=== PATIENT | male | born 1945 | race Caucasian/White ===

== ENCOUNTER 2019-08-07 16:19 | Emergency (ER) | payer MEDICARE, OTHER ==
[~2019-08-07 16:19] MED LIST: Iopamidol-370 76% 500 ML 1 ML ONE
[2019-08-07 16:45] LABS: #Basophils 0.1 thou/uL (0.0-0.2); #Eosinphils 0.2 thou/uL (0.0-0.7); #Lymphocytes 0.9 thou/uL (1.20-3.40); #Monocytes 0.8 thou/uL (0.11-0.59); %Basophils 0.4 % (0.0-1.0); %Eosinophils 1.3 % (0.0-10.0); %Lymphocytes 7.6 % (21.0-51.0); %Neutrophils 83.7 % (42.0-75.0); Hemoglobin 11.8 g/dL (14.0-18.0); Mean Corpuscular HGB CONC 33.3 g/dL (32.0-36.0); Mean Corpuscular Hemoglobin 32.6 pg (27.0-31.0); Mean Corpuscular Volume 97.8 fL (78.0-98.0); Mean Platelet Volume 7.9 fL (7.4-10.4); Platelet Count 168 thou/uL (130-400); RBC Distribution Width 13.1 % (11.5-14.5); Red Blood Cell (RBC) Count 3.62 mill/uL (4.70-6.10); White Blood Cell (WBC) Count 11.9 thou/uL (4.8-10.8)
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
[2019-08-07 17:09] LABS: ALT (SGPT) 58 U/L (8-55); AST (SGOT) 25 U/L (5-34); Albumin 4.2 g/dL (3.4-4.8); Alcohol Less than 10 mg/dL (Less than 10); Alkaline Phosphatase 81 U/L (40-110); Anion Gap 20 mmol/L (10-20); BUN (Urea Nitrogen) 24 mg/dL (8.4-25.7); Bilirubin, Total 0.5 mg/dL (0.2-1.2); Calc. Creatinine Clearance 0 mL/min (70-130); Calcium 9.3 mg/dL (7.8-10.44); Carbon Dioxide 19 mmol/L (23-31); Chloride 102 mmol/L (98-107); Estimated GFR-MDRD 42; Globulin 2.4 g/dL (2.4-3.5); Glucose 96 mg/dL (80-115); Lipase 36 U/L (8-78); Potassium 4.8 mmol/L (3.5-5.1); Protein, Total 6.6 g/dL (5.8-8.1); Sodium 136 mmol/L (136-145)
[2019-08-07] MEDS ORDERED: Fentanyl 100 MCG/2 ML VIAL ONE (17:11)
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
[2019-08-07] MEDS ORDERED: Propofol 500 MG/50 ML VIAL ONE (17:22)
[2019-08-07] MEDS ORDERED: Bacitracin 1 PK ONE ×2 (17:26→19:51)
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
[2019-08-07] MEDS ORDERED: Adacel (T-DAP) 0.5 ML SYRINGE ONE (18:20)
--- NOTE | 2019-08-07 18:52 | RAD ---
EXAM: LEFT WRIST TWO VIEWS: History: Post reduction. FINDINGS: There is a persistent oblique displaced fracture with some volar displacement of the distal radius wi th less volar angulation than seen on the prior study. There is considerable foreshortening. IMPRESSION: Some improvement in position and alignment of the distal radial fracture with some persistent volar d isplacement and foreshortening but with improved angulation. Stabilization with splint material. POS: RRE
[2019-08-07 19:19] LABS: Bilirubin Negative (Negative); Blood, Urine Negative (Negative); Clarity Clear (Clear); Glucose, Urine (Dipstick) Normal (Negative); Leukocyte Negative Leu/uL (Negative); Nitrite Negative (Negative); Protein, Urine (Dipstick) 20 mg/dL (Neg-Trace); Urobilinogen Normal mg/dL (Less than 2)
== END 2019-08-07 19:44 | disposition home or self-care (01) ==
LOC: EDBD 16:19 → ERS 16:19
DX: S52.502A Unspecified fracture of the lower end of left radius, initial encounter for closed fracture (principal); S00.83XA Contusion of other part of head, initial encounter; I10 Essential (primary) hypertension; R73.03 Prediabetes; I20.9 Angina pectoris, unspecified; V43.62XA Car passenger injured in collision with other type car in traffic accident, initial encounter
CPT/HCPCS: 25605; 70450; 71045; 71260; 72125; 74177; 80053; 80307; 81003; 83690; 84484; 85025; 90471; 90715; 93005; 96360; 96361; 99156; G0390; J2704; J3010; Q9967